=== PATIENT | female | born 1985 | race Two or more races ===

== ENCOUNTER 2021-09-22 08:36 | Emergency (ER) | payer SELFPAY | END 2021-09-22 09:43 | disposition home or self-care (01) | LOC: ER1 08:36 | DX: S96.912A Strain of unspecified muscle and tendon at ankle and foot level, left foot, initial encounter (principal); S90.32XA Contusion of left foot, initial encounter; W50.0XXA Accidental hit or strike by another person, initial encounter | CPT/HCPCS: 73610; 73630; 99283 ==